=== PATIENT | male | born 1950 | race Caucasian/White ===

== ENCOUNTER 2017-08-24 19:18 | Emergency (ER) | payer OTHER, BC ==
[2017-08-24] MEDS ORDERED: SULFAMET/TMP DS PREPACK#2 BTL TAKEHOME ONE (20:00)
--- NOTE | 2017-08-24 20:02 | EDPHY ---
H & P Time Seen by Provider: 08/24/17 19:22 HPI/ROS: 67-year-old male presents complaining of several lumps on his neck that developed while he has been traveling last several days, they are located in his anterior neck in places that he shaves. He denies fever or chills, he denies difficulty swallowing he denies pain. Review of systems As per HPI General no fever no chills no weakness HEENT no eye pain no eye discharge. No eye redness, no sore throat Respiratory no cough, no shortness of breath Cardiac no chest pain, no peripheral edema GI no abdominal pain, no diarrhea, no constipation, no nausea, no vomiting no flank pain, no hematuria, no dysuria Musculoskeletal no myalgias, no joint pain Heme no easy bruising, no easy bleeding Endo no polyuria, no polydipsia Skin positive rashes, no pruritus Neuro no syncope, no dizziness, no headaches Psych is no suicidal ideation, no homicidal ideation Past Medical/Surgical History: Non contributory Social History: Travels frequently Denies alcohol or drug use Smoking Status: Never smoked Physical Exam: 67 yo M Alert and oriented in no acute distress nontoxic appearance, afebrile Atraumatic normocephalic Neck no JVD left submandibular with papule approx 8mm, non fluctuant midline anterior neck overlying thyroid cartilage 2cm rounded mass with some external exudate non fluctuant Lungs clear to auscultation, no respiratory distress Heart regular rate and rhythm Extremities no cyanosis clubbing edema Constitutional: Initial Vital Signs Temperature (C) 37.2 C 08/24/17 19:34 Heart Rate 92 08/24/17 19:34 Respiratory Rate 18 08/24/17 19:34 Blood Pressure 152/114 H 08/24/17 19:34 O2 Sat (%) 94 08/24/17 19:34 O2 Delivery Mode Room Air Allergies/Adverse Reactions: No Known Allergies Allergy (Unverified 08/24/17 19:34) Home Medications: Medication Instructions Recorded NK [No Known Home Meds] 08/24/17 Medical Decision Making ED Course/Re-evaluation: Pt seen and evaluated for neck lumps Imp anterior neck abscess left submandibular neck papule Plan Bactrim for MRSA coverage F/u with ENT tomorrow for possible drainage Differential Diagnosis: Differential diagnosis considered but not limited to: Cellulitis, neck mass, neck abscess, neck papule, lymph node - Data Points Medications Given: Discontinued Medications Trimethoprim/Sulfamethoxazole (Bactrim Ds Prepack#2) 1 btl TAKEBRISSAE [facility]NOW ONE Stop: 08/24/17 20:01 Last Admin: 08/24/17 20:12 Dose: 1 btl Departure - Departure Disposition: Home, Routine, Self-Care Clinical Impression: Abscess, neck Condition: Good Instructions: Sulfamethoxazole/Trimethoprim (By mouth), Abscess (ED) Additional Instructions: Warm compresses, take antibiotics. Call ENT offices first thing Friday morning, they open at 730am. Referrals: Rio Escalera PA [Physician Voice Pathologist] - As per Instructions Abraham Murphy MD [Medical Doctor] - As per Instructions
[2017-08-24 20:16] VITALS: BP 149/118
== END 2017-08-24 20:15 | disposition home or self-care (01) ==
LOC: CED 19:18
DX: L02.11 Cutaneous abscess of neck (principal)